=== PATIENT | male | born 1975 | race Two or more races ===

== ENCOUNTER 2017-10-29 11:12 | Outpatient (CLI) | payer OTHER | END 2017-10-29 14:14 | disposition home or self-care (01) | LOC: SONOGRAMA 11:12 | DX: R22.1 Localized swelling, mass and lump, neck (principal) ==

== ENCOUNTER 2017-12-19 04:22 | Day surgery (SDC) | payer OTHER ==
[~2017-12-19 04:22] MED LIST: LISINOPRIL20 MG PO
== END 2017-12-19 09:40 | disposition home or self-care (01) ==
LOC: CIR.AMB 04:22
DX: L72.0 Epidermal cyst (principal)